=== PATIENT | female | born 1980 | race Caucasian/White ===

== ENCOUNTER 2024-10-04 13:05 | Emergency (ER) | payer OTHER ==
[~2024-10-04] VITALS: Ht 162.6 cm; Wt 50.0 kg
[2024-10-04] MEDS: FOLIC ACID 1MG TAB PO SCH (09:00)
[2024-10-04] MEDS: MULTIVITAMINS/MINERALS THERAP 1 TAB PO SCH (09:00)
[2024-10-04 13:27] VITALS: TEMP 98.6
[2024-10-04 14:15] LABS: HEMATOCRIT 36.4 % (36.0-47.0); HEMOGLOBIN 12.5 g/dl (12.0-15.5); MEAN CORPUSCULAR HEMOGLOBIN 39.1 pg (27.0-33.0); MEAN CORPUSCULAR HGB CONC 34.3 g/dl (32.0-36.5); MEAN CORPUSCULAR VOLUME 113.8 fl (80.0-96.0); PLATELET COUNT, AUTOMATED 172 10^3/uL (150-450); WHITE BLOOD COUNT 3.9 10^3/uL (4.0-10.0)
[2024-10-04 14:39] LABS: SALICYLATE LEVEL < 3.0 MG/DL (<30)
[2024-10-04 14:40] LABS: ALBUMIN 3.4 G/DL (3.2-5.2); ALKALINE PHOSPHATASE 202 U/L (35-104); ALT/SGPT 108 U/L (7.0-40); AST/SGOT 170 U/L (<34); BILIRUBIN,DIRECT 0.2 MG/DL (<0.4); BILIRUBIN,TOTAL 0.4 MG/DL (0.3-1.2); BLOOD UREA NITROGEN 17 MG/DL (9-23); CARBON DIOXIDE LEVEL 28 MMOL/L (20-31); CHLORIDE LEVEL 103 MMOL/L (98-107); GLOMERULAR FILTRATION RATE > 60.0 (>58); GLUCOSE, FASTING 105 MG/DL (60-100); POTASSIUM SERUM 3.3 MMOL/L (3.5-5.1); SODIUM LEVEL 145 MMOL/L (136-145); TOTAL PROTEIN 7.2 G/DL (5.7-8.2)
[2024-10-04 14:41] LABS: THYROID STIMULATING HORMONE 0.894 uIU/ML (0.55-4.78)
[2024-10-04 14:50] LABS: BARBITURATES URINE NEGATIVE (NEGATIVE); BENZODIAZEPINES URINE NEGATIVE (NEGATIVE); CANNABINOIDS URINE NEGATIVE (NEGATIVE); COCAINE METABOLITE URINE NEGATIVE (NEGATIVE); METHADONE URINE NEGATIVE (NEGATIVE); OPIATES URINE NEGATIVE (NEGATIVE); PHENCYCLIDINE URINE NEGATIVE (NEGATIVE)
[2024-10-04 14:52] LABS: ETHYL ALCOHOL (ETHANOL) 0.497 % (0.000-0.010)
[2024-10-04 14:52] LABS: AMPHETAMINES LEVEL URINE POSITIVE (NEGATIVE)
[2024-10-04] MEDS: NS (Normal Saline) 0.9% 1,000 ML IV ONE (16:35)
[2024-10-04] MEDS ORDERED: LORazepam 2 MG TAB PO PRN (18:00)
[2024-10-04] MEDS: THIAMINE 100 MG TAB PO SCH (20:59)
[2024-10-04 22:30] VITALS: BP 122/62; O2SAT 99
== END 2024-10-04 22:43 | disposition home or self-care (01) ==
LOC: EDBD 13:05 → M ED 13:05
DX: F10.129 Alcohol abuse with intoxication, unspecified (principal); F43.0 Acute stress reaction; F32.A Depression, unspecified